=== PATIENT | male | born 1985 | race Caucasian/White ===

== ENCOUNTER → 2025-05-21 | Outpatient (CLI) | payer OTHER ==
[~2025-05-21] MED LIST: GADOTERATE MEGLUMINE 5 MMOL/10 ML VIAL IV ONE
--- NOTE | 2025-05-23 11:32 | HMCIMG ---
EXAMINATION: NONCONTRAST MRI OF THE RIGHT FOOT. CLINICAL HISTORY: Pain. COMPARISON: None provided. TECHNIQUE: Multiplanar, multisequence MR images of the right foot were obtained. FINDINGS: There is bipartite medial sesamoid at the first metatarsal head with moderate marrow edema. There is mild adjoining muscles/soft tissue edema. Joint spaces are preserved. There is minimal flexor hallucis longus tendon sheath fluid at the level of distal metatarsal shaft. Rest of the visualized extensor and flexor tendons are normal in course and morphology without evidence of tenosynovitis. Plantar musculature is normal in bulk and signal. There is minimal first and third intermetatarsal bursal fluid. IMPRESSION: 1. Bipartite medial sesamoid at the first metatarsal head with moderate marrow edema and mild adjacent soft tissue edema. 2. Minimal flexor hallucis longus tenosynovitis. /[place]
== END | disposition home or self-care (01) ==
LOC: RAH 08:57
PROVIDERS: ATTEND Nurse Practitioner Family
DX: M79.671 Pain in right foot (principal); R22.41 Localized swelling, mass and lump, right lower limb
CPT/HCPCS: 73720; A9575